=== PATIENT | female | born 1975 | race Caucasian/White ===

== ENCOUNTER → 2018-09-16 | Outpatient (CLI) | payer OTHER | LOC: FIMAGING 12:27 | PROVIDERS: ATTEND Family Medicine | DX: N20.0 Calculus of kidney (principal); N28.1 Cyst of kidney, acquired; M51.36 Other intervertebral disc degeneration, lumbar region; M51.37 Other intervertebral disc degeneration, lumbosacral region ==

== ENCOUNTER 2018-09-18 14:35 | Emergency (ER) | payer OTHER ==
[2018-09-18 15:16] LABS: PLATELET COUNT 286 10^3/uL (150-400)
--- NOTE | 2018-09-18 15:57 | EDPHY ---
H & P Stated Complaint: hematuria Time Seen by Provider: 09/18/18 14:44 HPI/ROS: CHIEF COMPLAINT: Hematuria HISTORY OF PRESENT ILLNESS: 43-year-old female presents with persistent UTI symptoms. She was diagnosed with the urinary tract infection 5 days ago. She was placed on Macrobid. She continued to have gross hematuria after starting Macrobid. She saw her primary care physician 2 days ago and her antibiotic was switched to Cipro. CT scan 2 days ago revealed left nephrolithiasis, no ureteral calculus. She continues to have urinary frequency and gross hematuria. Now associated with nausea, low-grade fever and mild right-sided back pain. REVIEW OF SYSTEMS: complete 10 point ROS reviewed and is negative except for the noted elements in the HPI - Personal History Current Tetanus/Diphtheria Vaccine: Yes Tetanus Vaccine Date: 2010 - Medical/Surgical History Hx Asthma: No Hx Chronic Respiratory Disease: No Hx Diabetes: No Hx Cardiac Disease: No Hx Renal Disease: No Hx Cirrhosis: No Hx Alcoholism: No Hx HIV/AIDS: No Hx Splenectomy or Spleen Trauma: No Other PMH: ectopic preg/epilepsy - Social History Smoking Status: Never smoked Additional Social History: - Physical Exam Exam: General Appearance: Alert, pleasant Eyes: Pupils equal and round, no conjunctival pallor ENT, Mouth: Mucous membranes moist Neck: Normal inspection Respiratory: Lungs are clear to auscultation Cardiovascular: Regular rate and rhythm Gastrointestinal: Abdomen is soft, suprapubic tenderness Back: Normal inspection, no CVA tenderness Neurological: A&O, nonfocal, normal gait Skin: Warm and dry, no rash Extremities: Normal inspection Psychiatric: Mood and affect normal Constitutional: Initial Vital Signs Temperature (C) 36.7 C 09/18/18 14:40 Heart Rate 106 H 09/18/18 14:40 Respiratory Rate 18 09/18/18 14:40 Blood Pressure 146/105 H 09/18/18 14:40 O2 Sat (%) 95 09/18/18 14:40 O2 Delivery Mode Room Air Allergies/Adverse Reactions: Sulfa (Sulfonamide Antibiotics) Allergy (Mild, Verified 09/18/18 14:40) Rash carbamazepine [From Tegretol] Allergy (Verified 09/18/18 14:40) Home Medications: Medication Instructions Recorded Zolpidem Tartrate [Ambien] 5 mg PO HS PRN 03/27/14 Zonisamide [Zonegran 100MG (RX)] 150 mg PO BID 03/27/14 Ondansetron Odt [Zofran Odt 4 mg 4 mg PO Q4 PRN #20 tab 03/28/14 (RX)] Hydrocodone/Acetaminophen [[place] 1 tab PO Q6 PRN 03/31/14 5/325 (RX)] [place]-3 Fatty Acids [Fish Oil 1000 1,000 mg PO DAILY 03/31/14 mg (OTC)] Diazepam [Valium 5 MG (RX)] 5 mg PO TID PRN #15 tab 04/01/14 Hydrocodone/APAP 5/325 [[place] 1 - 2 tab PO Q4 PRN #60 tab 04/01/14 5/325 (*)] Cefdinir [Omnicef (*)] 300 mg PO BID #20 cap 09/18/18 Ondansetron Odt [Zofran Odt 4 mg 4 mg PO Q4 PRN #6 tab 09/18/18 (*)] Medical Decision Making ED Course/Re-evaluation: This patient presents with persistent UTI symptoms, now suggestive of early pyelonephritis. Old medical record reviewed. CT scan from 09/16/2018 reviewed and reveals nonobstructive left nephrolithiasis. No urinalysis or urine culture present in the computer system. Reviewed outpt urine cx 09/16 from [facility] (via pt portal on her iphone); lactobacillus present. UA today c/w UTI ( though contaminated sample). Will treat for pyelo with IV Rocephin in ED, then Omnicef as outpt. Urine cx sent. Pt will c/b 2 days for culture results. If culture negative or if not improving, will f/u urology. Differential Diagnosis: includes though not limited to pyelo, cystitis, kidney stone, tumor - Data Points Laboratory Results: Laboratory Results 09/18/18 15:00 09/18/18 15:00 Medications Given: Discontinued Medications Ceftriaxone Sodium/Dextrose (Rocephin 1 Gm (Premix)) 50 mls @ 100 mls/hr IV EDNOW ONE PRN Reason: Protocol Stop: 09/18/18 16:41 Last Admin: 09/18/18 16:16 Dose: 50 mls Sodium Chloride (Ns) 1,000 mls @ 0 mls/hr IV ONCE ONE; Wide Open PRN Reason: Protocol Stop: 09/18/18 16:14 Last Admin: 09/18/18 16:16 Dose: 1,000 mls Departure - Departure Disposition: Home, Routine, Self-Care Clinical Impression: Acute pyelonephritis Condition: Fair Instructions: Kidney Infection (ED) Additional Instructions: Drink plenty of fluids. Take ibuprofen 600mg every 8 hours as needed for pain. Take Zofran 1 tablet under the tongue every 6 hours as needed for nausea. Take Omnicef as prescribed. Stop taking Cipro. Call in 2 days for urine culture results. Referrals: HARVEY ONEIL [Primary Care Provider] - As per Instructions Michelle Ortiz MD [Medical Doctor] - As per Instructions (Call to make an appointment.) Prescriptions: Cefdinir [Omnicef (*)] 300 mg PO BID #20 cap Ondansetron Odt [Zofran Odt 4 mg (*)] 4 mg PO Q4 PRN #6 tab PRN Reason: Nausea
[2018-09-18] MEDS ORDERED: NS 1,000 ML IV ONE (16:13)
[2018-09-18 16:43] VITALS: BP 114/73
== END 2018-09-18 16:49 | disposition home or self-care (01) ==
DX: N10 Acute pyelonephritis (principal); E86.9 Volume depletion, unspecified
CPT/HCPCS: 96365; J0696

== ENCOUNTER → 2018-09-23 | Outpatient (CLI) | payer OTHER | LOC: BMCIMAGING 10:32 | PROVIDERS: ATTEND Urology | DX: N20.0 Calculus of kidney (principal) ==